=== PATIENT | female | born 1960 | race Caucasian/White ===

== ENCOUNTER 2020-06-17 15:12 | Emergency (ER) | payer OTHER ==
[~2020-06-17] VITALS: Ht 165.1 cm; Wt 121.1 kg
[~2020-06-17 15:12] MED LIST: ACYCLOVIR 800800 MG PO; ASPIRIN325 PO; AUGMENTIN 500-1 EACH PO; MELATONIN3 MG PO; MELOXICAM7.5 MG PO; NEURONTIN 300300 M1 PO; OMEPRAZOLE20 M1 PO; OXYBUTYNIN 5 MG5 M2 PO; OXYCODONE HCL 55 MG PO; OXYCONTIN10 M1 PO; PAXIL10 MG PO; PRILOSEC 20 MG20 MG PO; PRINZIDE 20-121 EACH PO; SANCTURA XR60 M1 PO; XARELTO10 M1 PO; XARELTO10 MG PO; ZESTORETIC 20-1 EAC3 PO
[2020-06-17] MEDS ORDERED: LETROZOLE2.5 MG PO (15:27)
[2020-06-17] MEDS ORDERED: CALCIUM500 MG PO (15:27)
[2020-06-17] MEDS ORDERED: VENLAFAXINE HCL50 MG PO (15:27)
[2020-06-17 16:12] LABS: URINE BILIRUBIN NEGATIVE (Negative); URINE BLOOD NEGATIVE (Negative); URINE CLARITY CLEAR; URINE COLOR YELLOW; URINE GLUCOSE-RANDOM NEGATIVE (Negative); URINE KETONES NEGATIVE (Negative); URINE LEUKOCYTES-REFLEX NEGATIVE (Negative); URINE NITRITE-REFLEX NEGATIVE (Negative); URINE PROTEIN NEGATIVE (Negative); URINE UROBILINOGEN 0.2 E.U./dl (0.2-1.0)
[2020-06-17 16:13] LABS: ABSOLUTE BASOPHILS 0.1 thou/uL (0.0-0.2); ABSOLUTE EOSINOPHILS 0.3 thou/uL (0.0-0.7); ABSOLUTE LYMPHOCYTES 2.1 thou/uL (0.8-5.3); ABSOLUTE MONOCYTES 0.8 thou/uL (0.0-1.2); ABSOLUTE NEUTROPHILS 6.6 thou/uL (1.6-8.1); BASOPHILS 0.9 %; EOSINOPHILS 2.6 %; HEMATOCRIT 43.3 % (37.0-47.0); LYMPHOCYTES 21.3 %; MCH 30.5 pg (26.0-34.0); MCHC 34.6 g/dL (28.0-37.0); MCV 88.2 fL (80.0-100.0); MPV 8.1 fl. (7.2-11.1); NUCLEATED RBCS 0 /100WBC; PLATELET COUNT* 358 thou/uL (150-400); POLYS 67.2 %; RBC 4.91 mil/uL (4.20-5.00); RDW-CV 13.8 % (10.5-14.5); WBC 9.8 thou/uL (4.0-11.0)
[2020-06-17 16:19] LABS: CALCIUM 9.5 mg/dL (8.5-10.1); POTASSIUM 3.8 mmol/L (3.5-5.1)
[2020-06-17 16:26] LABS: TOTAL BILIRUBIN 0.6 mg/dL (<0.1-1.0); TOTAL PROTEIN 8.5 g/dL (6.4-8.2)
[2020-06-17] MEDS ORDERED: LISINOPRIL-HCT1 EAC1 PO (17:20)
[2020-06-17 17:48] VITALS: BP 145/71
--- NOTE | 2020-06-18 17:25 | EKG ---
[place] [address] ELECTROCARDIOGRAM REPORT Name: THAO JACKSON Room: [facility]#: [id number] Admission: 06/17/20 Attend Phys: Discharge: 06/17/20 Date of : 56 Date of Service: 06/17/20 1526 Report #: [id number] THIS REPORT FOR: //name// [facility] ED Test Date: 2020-06-17 Test Time: 15:26:24 Pat Name: THAO JACKSON Department: Room: Gender: Supervisor Carding: [facility] : 1960 Requested By: Gopal Loza Order Number: [id number] MD: Jude Conteh Measurements Intervals Rosalie Rate: 100 P: 39 MS: 142 QRS: 9 QRSD: 79 T: 126 QT: 327 QTc: 422 Interpretive Statements Sinus tachycardia Probable left atrial enlargement LVH with secondary repolarization abnormality Baseline wander in lead(s) II,III,aVF Compared to ECG 11/26/2016 10:37:58 Left ventricular hypertrophy now present Early repolarization now present Sinus rate has increased ST (T wave) deviation no longer present Electronically Signed On 06-18-2020 17:25:48 CDT by Jude Conteh [email or web address] <ELECTRONICALLY SIGNED> By: Jude Conteh MD, [facility] 06/18/20 1725 1526 1526 Jude Conteh MD, [facility] /EPI
== END 2020-06-17 17:49 | disposition home or self-care (01) ==
LOC: M.ERS 15:12
PROVIDERS: Physician Assistant
DX: I10 Essential (primary) hypertension (principal); K21.9 Gastro-esophageal reflux disease without esophagitis; Z96.653 Presence of artificial knee joint, bilateral; Z90.49 Acquired absence of other specified parts of digestive tract; Z85.3 Personal history of malignant neoplasm of breast; Z90.11 Acquired absence of right breast and nipple; Z91.048 Other nonmedicinal substance allergy status